=== PATIENT | male | born 1985 | race Caucasian/White ===

== ENCOUNTER 2018-05-25 04:49 | Emergency (ER) | payer OTHER ==
[~2018-05-25] VITALS: Ht 193 cm; Wt 95.3 kg
[~2018-05-25 04:49] MED LIST: ADVAIR 250-501 EACH; ADVAIRDISKUS; ALBUTEROL INH; ALBUTEROL NEB; ALBUTEROL2.5 MG/0.5 INH; ALLERGY25 M2 PO; AMOXICILLIN875 MG PO; BACTRIM DS TAB1 EACH PO; COMBIVENT INH; FLONASE 0.05%50 MCG; MEDROLDOSEPACK PO; PREDNISONE 10 M10 M1; PREDNISONE 10 M10 M1 PO; PREDNISONE 20 M20 M1 PO; PREDNISONE 20 M20 MG PO; PREDNISONE50 MG PO; SINGULAIR 10 MG10 M1; ULTRAM 50MG TAB50 MG PO; VICODIN 5-5001 EACH; XOPENEX1.25 MG/3; ZPAK; ZPAK PO
[2018-05-25] MEDS ORDERED: PREDNISONE 20 M20 M1 PO (04:57)
[2018-05-25 06:14] VITALS: BP 114/75
== END 2018-05-25 06:10 | disposition home or self-care (01) ==
LOC: M.ERS 04:49
DX: J45.901 Unspecified asthma with (acute) exacerbation (principal); Z88.6 Allergy status to analgesic agent; Z88.8 Allergy status to other drugs, medicaments and biological substances